=== PATIENT | female | born 1990 | race Caucasian/White ===

== ENCOUNTER → 2017-12-13 18:48 | Outpatient (CLI) | payer OTHER, SELFPAY ==
[2017-12-13 19:06] LABS: Hemoglobin 13.6 g/dl (12.0-15.0); Mean Corpuscular Hgb 31.1 pg (27.0-32.0); Mean Corpuscular Volume 91.5 fL (81-99); Mean Platelet Vol. 10.3 fl (6.2-12.0); Platelet Count 153 K/mm3 (150-450); RBC Distribution Width CV 12.4 % (11.6-14.6); RBC Distribution Width SD 41.2 fl (35.1-43.9); Red Blood Count 4.37 M/mm3 (4.2-5.4); White Blood Count 8.9 K/mm3 (4.4-11.0)
[2017-12-13 19:16] LABS: ALB/GLOB Ratio 0.8 RATIO (0.9-2.4); AST(SGOT) 15 U/L (15-37); Alanine Aminotransfer ALT/SGPT 17 U/L (13-56); Albumin, Serum 2.9 g/dL (3.2-5.0); Alkaline Phosphatase 68 U/L (45-117); Anion Gap 8 (5-15); BUN 5 mg/dL (7-18); BUN/Creat Ratio 8.7 RATIO (10-20); Chloride 106 mmol/L (98-107); Creatinine, Serum 0.57 mg/dL (0.55-1.02); EST Glomerular Filtration Rate 135 mL/min (>60); Est Glom Filt Rate - Afr Amer 164 mL/min (>60); Globulin 3.7 g/dL (2.2-4.2); Glucose 77 mg/dL (74-106); Protein, Total 6.6 g/dL (6.4-8.2); Scan Indicated on CBC? Y/N NO; Sodium Level 140 mmol/L (136-145); Uric Acid 2.6 mg/dL (2.6-6.0)
[2017-12-13 19:17] LABS: Protein, Urine (Random) < 6.0 mg/dL (<11.9)
== END ==
PROVIDERS: Visit Provider Obstetrics & Gynecology
DX: O13.9 Gestational [pregnancy-induced] hypertension without significant proteinuria, unspecified trimester (principal); Z3A.00 Weeks of gestation of pregnancy not specified
CPT/HCPCS: 80053; 82570; 84156; 84550; 85027

== ENCOUNTER 2018-02-16 10:45 | Inpatient (IN) | payer OTHER, SELFPAY ==
[2018-02-16 11:11] VITALS: BMI 28.2
[2018-02-16 11:22] LABS: ROM Internal Control Test YES-OK TO RESULT pt. (Internal QC)
[2018-02-16 11:23] LABS: ROM Patient Test POSITIVE (Negative)
[2018-02-16] MEDS: Lactated Ringers 1,000 ML 50 ML IV (11:32)
[2018-02-16 11:41] LABS: Hemoglobin 15.7 g/dl (12.0-15.0); Mean Corp Hgb Conc 35.7 g/gl (32-36); Mean Corpuscular Hgb 32.2 pg (27.0-32.0); Mean Corpuscular Volume 90.3 fL (81-99); Mean Platelet Vol. 11.2 fl (6.2-12.0); Platelet Count 180 K/mm3 (150-450); RBC Distribution Width CV 12.3 % (11.6-14.6); RBC Distribution Width SD 40.2 fl (35.1-43.9); Red Blood Count 4.87 M/mm3 (4.2-5.4); White Blood Count 12.6 K/mm3 (4.4-11.0)
[2018-02-16 11:43] LABS: Scan Indicated on CBC? Y/N NO
--- NOTE | 2018-02-16 14:22 | PCM.PN.BLA ---
Progress Note LABOR PROGRESS NOTE Called to patient room for delivery. On my arrival FHR 80-85 bpm and patient pushing. Patient turned onto maternal right side with no improvement and O2 administered. SVE 9/90/-1 by my exam. Patient then turned to all fours and ISE placed with no improvement of FHR x 8 minutes thus advised transfer to room for possible section versus delivery. On arrival to OR, FHR 135-140 bpm and moderate variability. I reviewed with patient and findings and my recommendation to continue laboring at this time and status more reassuring. Patient in agreement. Will continue to observe in OR.
[2018-02-16] MEDS: Oxytocin 30 units/NS 500 ml 30 UNITS/500 ML IV.SOLN 334 UNITS IV (17:43)
[2018-02-16] MEDS: Methylergonovine 0.2 MG/ML Ampul IM (17:51)
[2018-02-16] MEDS: Oxytocin 30 units/NS 500 ml 30 UNITS/500 ML IV.SOLN 167 UNITS IV (18:15)
--- NOTE | 2018-02-16 18:28 | PCM.OB.VAG ---
- Problem List (1) 40 weeks gestation of Status: Acute (2) Vacuum extractor delivery, delivered Status: Acute Vaginal Delivery Maternal Presentation: Active Labor Amniotic Membrane Rupture Type: Spontaneous at home Rupture of Membrane time: 0600 02/16/18 Amniotic Fluid Description: Clear Final CHERIE: 02/10/18 Final CHERIE Source: US <20 weeks Gestational age: 40 Weeks and 6 Days [place] doctor who attended delivery (if requested by OB): Regi Duong Date of Procedure: 02/16/18 Pre-Operative Diagnosis: 40 6/7wga, Cat II FHR Post-Operative Diagnosis: 40 6/7wga, Cat II FHR Surgery/ Procedure Performed: Vacuum Assisted Vaginal Delivery Anesthesiologist: Kishor Fox Type of Anesthesia: Epidural Description of Procedure: Patient was fully dilated +2 station on my arrival with the presence of prolonged decelerations. I advised vacuum assistance at this time and reviewed with her and her risks including scalp edema, bruising, scalp laceration, subgaleal hemorrhage as well as maternal perineal and vaginal laceration. Patient was agreeable and desire to proceed. The fetus was in NORA. The Kiwi Was placed at the flexion point and 500 mm suction applied at 1632. The patient continue pushing with good maternal effort and recurrent decelerations for the next 20 minutes. heart rate would recover in between contractions up to 90s-120s beats per minute. It appeared that the decelerations were lessening in severity and given descent to +3 station at this time I removed the suction apparatus. The patient continue to push with excellent effort and the heart rate remained category 1 therapeutic time and then again returned category 2 however moderate variability persisted in between decelerations. When the scalp breech +4 station I again advised vacuum delivery given the recurrence of the decelerations. Vacuum was placed at the flexion point and 500 mmHg applied. There is a single pull for less than a minute with delivery of the head to the suction was released and vacuum Removed. The anterior then posterior shoulders delivered and the was placed on the maternal abdomen and further attended by the nursery personnel. The cord was quickly doubly clamped and cut and the then passed to the waiting photographer assistant. Her gases were obtained. The placenta delivered spontaneously and appeared intact on inspection. The uterus was notably atonic and there was a gush of blood without any hemorrhage. IV Pitocin was administered and I employed vigorous bimanual uterine massage and a dose of IM Methergine was administered. There was significant improvement of the bleeding and uterine tone improved. A first-degree vaginal laceration was repaired using 3-0 Vicryl Rapide. Sponge counts were correct ?2. Needle counts were correct ?2. Presentation: Vertex Placental Delivery Description: Spontaneous Placenta Disposition: [facility] Cord Vessel Description: 3 Vessels Nuchal Cord Compression: Without compression Cord Gases drawn per routine: ABG, VBG Cord Entanglement: None Drain: Oswald to straight drain Estimated Blood Loss: 350 ml A gender: Male (1 minute): 8 (5 minute): 9 Episiotomy Description: None Laceration: Vaginal Extension/lac, 1st degree Medications given after delivery: IV Pitocin, IM Methergin Complications: None
[2018-02-16] MEDS: Ibuprofen 600 MG Tablet PO (19:42)
[2018-02-16] MEDS: 0.9% Saline Lock 10 ML Syringe IV (20:15)
[2018-02-17 00:06] VITALS: BP 120/77; PULSE 75; RESP 16; TEMP 36.6; O2SAT 99
[2018-02-17 03:48] VITALS: BP 103/59; PULSE 61; RESP 16; TEMP 36.6; O2SAT 99
--- NOTE | 2018-02-17 04:15 | NURSING ---
Taking over pt care.
[2018-02-17] MEDS: Ibuprofen 600 MG Tablet PO ×2 (07:37→17:32)
[2018-02-17 08:00] VITALS: BP 127/69; PULSE 65; RESP 14; TEMP 36.1
--- NOTE | 2018-02-17 08:46 | PCM.PN.OB ---
Patient Problems: Active and Suspected Problems (This Medical Record has been edited. Action required.) 40 weeks gestation of (Acute) Vacuum extractor delivery, delivered (Acute) Subjective: No issues overnight. Her bottom is sore. Denies heavy lochia. No complaints. is nursing well. Denies heavy lochia. Objective: AVSS - Physical Exam General: Alert, Oriented x3, Cooperative, No apparent distress HEENT: Atraumatic, Normocephalic Lungs: Normal air movement Cardiovascular: Regular rate, Regular Rhythm, Normal S1, Normal S2 Abdomen: Soft, Non Tender, Non-Distended, - - Fundus firm and nontender Extremities: No edema, No Calf Tenderness Neurological: Neuro grossly intact Psych/Mental Status: Normal Affect, Appropriate, Alert and oriented to time, place, person, mood and affect Vital Signs Temp Pulse Resp BP Pulse Ox 97.8 F 61 16 103/59 L 99 02/17/18 03:48 02/17/18 03:48 02/17/18 03:48 02/17/18 03:48 02/17/18 03:48 Oxygen Delivery Method Room Air Weight: 74.559 kg Body Mass Index (BMI) 28.2 Intake and Output for Last 24 Hours 02/15/18 02/16/18 02/17/18 23:59 23:59 23:59 Intake Total 1150 / 1150 Output Total 800 / 800 700 / 700 Balance 350 / 350 -700 / -700 Laboratory Tests Past 24 Hrs 02/16/18 02/16/18 02/16/18 11:00 11:10 11:10 WBC 12.6 H RBC 4.87 Hgb 15.7 H Hct 44.0 MCV 90.3 MCH 32.2 H MCHC 35.7 RDW 12.3 RDW Differential 40.2 Plt Count 180 MPV 11.2 Specimen Type Sample Site O2 % Cord ABG pH Cord ABG pCO2 Cord ABG pO2 Cord ABG HCO3 Cord ABG Total CO2 Cord ABG Base Excess Cord ABG O2 Sat Respiration Rate O2 Delivery Device Liter Flow Minute Volume Tidal Volume POC PEEP POC Pressure Suppt Pressure High Pressure Low Time High Time Low EPAP IPAP Blood Gas Notified Whom Blood Gas Notified Time Vag Amniotic Fld Detect POSITIVE H Blood Type AB POSITIVE Antibody Screen NEGATIVE 02/16/18 18:06 WBC RBC Hgb Hct MCV MCH MCHC RDW RDW Differential Plt Count MPV Specimen Type Cancelled Sample Site Cancelled O2 % Cancelled Cord ABG pH Cancelled Cord ABG pCO2 Cancelled Cord ABG pO2 Cancelled Cord ABG HCO3 Cancelled Cord ABG Total CO2 Cancelled Cord ABG Base Excess Cancelled Cord ABG O2 Sat Cancelled Respiration Rate Cancelled O2 Delivery Device Cancelled Liter Flow Cancelled Minute Volume Cancelled Tidal Volume Cancelled POC PEEP Cancelled POC Pressure Suppt Cancelled Pressure High Cancelled Pressure Low Cancelled Time High Cancelled Time Low Cancelled EPAP Cancelled IPAP Cancelled Blood Gas Notified Whom Cancelled Blood Gas Notified Time Cancelled Vag Amniotic Fld Detect Blood Type Antibody Screen Medical Necessity - Tobacco Use Smoking Status: Never smoker Assessment/Plan All Active Problems (This Medical Record has been edited. Action required.) 40 weeks gestation of (Acute) Vacuum extractor delivery, delivered (Acute) 27yo PPD#1 s/p VAVD doing well. -AB positive, Rubella immune - -Routine care
[2018-02-17] MEDS: Acetaminophen 500 MG Tablet PO ×2 (10:52→20:27)
[2018-02-17 12:35] VITALS: BP 119/70; PULSE 78; TEMP 36.4; O2SAT 98
[2018-02-17 17:35] VITALS: BP 124/77; PULSE 67; RESP 20; TEMP 36.3; O2SAT 100
[2018-02-17 20:00] VITALS: BP 116/62; PULSE 64; RESP 16; TEMP 36.6
[2018-02-18 03:20] VITALS: BP 129/69; PULSE 85; RESP 16; TEMP 36.1
[2018-02-18] MEDS: Acetaminophen 500 MG Tablet PO (07:33)
[2018-02-18 07:55] VITALS: BP 113/62; PULSE 58; RESP 18; TEMP 36.2
--- NOTE | 2018-02-18 08:40 | PCM.PN.OB ---
Patient Problems: Active and Suspected Problems (This Medical Record has been edited. Action required.) 40 weeks gestation of (Acute) Vacuum extractor delivery, delivered (Acute) Subjective: No complaints. Doing well. Denies heavy lochia or urinary sx. Objective: AVSS - Physical Exam General: Alert, Oriented x3, Cooperative, No apparent distress HEENT: Atraumatic, Normocephalic Lungs: Clear to auscultation, Normal air movement Cardiovascular: Regular rate, Regular Rhythm, Normal S1, Normal S2 Abdomen: Soft, Non Tender, Non-Distended, - - Fundus firm and nontender, lochia scant Extremities: No edema, No Calf Tenderness Neurological: Neuro grossly intact Psych/Mental Status: Normal Affect, Appropriate, Alert and oriented to time, place, person, mood and affect Vital Signs Temp Pulse Resp BP Pulse Ox 97.2 F L 58 L 18 113/62 100 02/18/18 07:55 02/18/18 07:55 02/18/18 07:55 02/18/18 07:55 02/17/18 17:35 Oxygen Delivery Method Room Air Weight: 74.559 kg Body Mass Index (BMI) 28.2 Intake and Output for Last 24 Hours 02/16/18 02/17/18 02/18/18 23:59 23:59 23:59 Intake Total 1150 / 1150 Output Total 800 / 800 700 / 700 Balance 350 / 350 -700 / -700 Medical Necessity - Tobacco Use Smoking Status: Never smoker Assessment/Plan All Active Problems (This Medical Record has been edited. Action required.) 40 weeks gestation of (Acute) Vacuum extractor delivery, delivered (Acute) 27yo PPD#2 s/p VAVD doing well. -AB positive, Rubella immune - -Routine care -d/c home today
--- NOTE | 2018-02-18 09:29 | PCM.DCVAG ---
Discharge Diet: No Restrictions Discharge Activity: Return to Normal Activity May resume sexual activity in: 6 weeks Lifting Restrictions: 20 lb Call your doctor if you observe: Fever of 101 or Higher, Inability to urinate, Inability to have a bowel movement, Using more than one pad per hour, Shortness of breath, Chest pain, Calf discomfort, Uncontrolled pain Cleanse incision/area with: Soap & Water Additional Instructions: If you experience any of the following, contact your healthcare provider. Bleeding that soaks a pad every hour for 2 hours Fever 100.4 or higher Unrelieved incision or abdominal pain Swelling, redness, discharge or bleeding from your incision or episiotomy site Your incision begins to separate Problems urinating (including inability to urinate or burning while urinating). Visual changes Severe headache Flu-like symptoms Pain or redness in one of both of your breasts Pain, warmth, tenderness or swelling in your legs, especially the calf area Frequent nausea and vomiting Symptoms of depression or anxiety If you experience any of the following, call 911 or go to the nearest Emergency Room. Chest pain Problems breathing Seizure activity Partial or complete paralysis of a body part, slurred speech, weakness or drooping of the face, or a sudden inability to walk or hold your balance Allergies/Adverse Reactions: Allergies No Known Allergies Allergy (Verified 11/21/14 07:57) Medications to take at Discharge Ibuprofen 600 mg PO TID PRN #30 tab 02/16/18 The following prescriptions were given: Ibuprofen 600 mg PO TID PRN #30 tab PRN Reason: Pain Please Follow Up With: Unique Selby MD When: 6 weeks Primary Care Physician: Prasanth Tineo MD [Primary Care Provider] - Test Results: Test results from this visit will be discussed in further detail at your follow-up appointment, if applicable.
--- NOTE | 2018-02-18 10:55 | NURSING ---
0930 While rounding, Mom doing a great job with nursing. Mom has her spectra breast pump here and was shown how to use her pump for home use. Many questions answered regarding feeding.
== END 2018-02-18 12:30 | disposition home or self-care (01) | DRG 775 ==
PROVIDERS: Obstetrics & Gynecology; Admitting Provider Obstetrics & Gynecology; Family Provider Family Medicine; PCP Family Medicine; Visit Provider Obstetrics & Gynecology
DX: O76 Abnormality in fetal heart rate and rhythm complicating labor and delivery (principal); O42.02 Full-term premature rupture of membranes, onset of labor within 24 hours of rupture; O70.0 First degree perineal laceration during delivery; Z3A.40 40 weeks gestation of pregnancy; Z37.0 Single live birth
CPT/HCPCS: 59025; 59050; 82803; 84112; 85027; 86850; 86900; 99218; J7120; A4216; G0378

== ENCOUNTER → 2019-02-07 17:54 | Outpatient (CLI) | payer OTHER, SELFPAY | PROVIDERS: Family Provider Family Medicine; PCP Family Medicine; Referring Provider Family Medicine; Visit Provider Family Medicine | DX: R30.0 Dysuria (principal) | CPT/HCPCS: 87086; 87088; 87186 ==

== ENCOUNTER → 2019-10-23 | Outpatient (CLI) | payer BC, SELFPAY ==
[2019-10-23 17:50] LABS: Absolute Lymphocyte Count 1.35 X10^3/uL (0.83-4.51); Absolute Neutrophil Count 8.8 X10^3/uL (2.0-7.7); Basophil# 0.02 X10^3/uL; Basophil% 0.2 % (0-1); Eosinophil# 0.04 X10^3/uL; Eosinophils% 0.4 % (0-5); Hemoglobin 13.4 g/dL (12.0-15.0); Lymphocyte # 1.35 X10^3/ul (4.0); Lymphocyte % 12.5 % (19-41); Mean Corp Hgb Conc 33.5 g/dL (32-36); Mean Corpuscular Hgb 29.6 pg (27.0-32.0); Mean Corpuscular Volume 88.3 fL (81-99); Mean Platelet Vol. 10.5 fl (6.2-12.0); Monocyte# 0.51 X10^3/uL; Monocyte% 4.7 % (0-10); NRBC Flagged by Analyzer 0 % (0-5); Neutrophil # 8.84 X10^3/uL (2.7-7.7); Neutrophil % 81.8 % (47-70); Platelet Count 163 K/mm3 (150-450); RBC Distribution Width CV 11.9 % (11.6-14.6); RBC Distribution Width SD 38.1 fl (35.1-43.9); Red Blood Count 4.53 M/mm3 (4.2-5.4); White Blood Count 10.8 K/mm3 (4.4-11.0)
[2019-10-23 18:08] LABS: Color, Urine Yellow (Yellow); Glucose, Dipstick Normal (Normal); Ketone-Dipstick Negative (Negative); Leukocyte Esterase-Dipstick Negative /ul (Negative); Nitrite-Dipstick Negative (Negative); Occult Blood-Urine Negative /ul (Negative); Protein-Dipstick Negative (Negative); Specific Gravity, Urine 1.005 (1.002-1.030); Urine Bilirubin Dipstick Negative (Negative); Urine Clarity Clear (Clear); Urine Urobilinogen Normal (Normal); Urine pH 6.5 (5.0 - 8.0)
[2019-10-23 18:38] LABS: Amphetamine Urine VISTA NEGATIVE (<1000 ng/mL); Barbiturate Urine VISTA NEGATIVE (< 200 ng/mL); Benzodiazepine Urine VISTA NEGATIVE (< 200 ng/mL); Cocaine Urine VISTA NEGATIVE (< 300 ng/mL); Ecstacy Urine VISTA NEGATIVE (< 500 ng/mL); Methadone Urine VISTA NEGATIVE (< 300 ng/mL); PCP Urine VISTA NEGATIVE (< 25 ng/mL); THC Urine VISTA NEGATIVE (< 50 ng/mL); Vista UDS pH Range 6
[2019-10-23 21:31] LABS: Chlamydia Trachomatis by PCR Negative (Negative); Neisserai gonorrhoeae by PCR Negative (Negative); Probe Check PASS; Sample Adequacy Control PASS; Specimen Processing Control PASS
[2019-10-24 08:28] LABS: HIV - WCH Non-Reactive (Nonreactive); Hepatitis B Surface Antigen Non-Reactive (Nonreactive); Hepatitis C Antibody Non-Reactive (Nonreactive); Rubella IgG 122.7 IU/mL
[2019-10-25 08:08] LABS: Prenatal RPR NONREACTIVE (NONREACTIVE)
== END | disposition home or self-care (01) ==
PROVIDERS: PCP Family Medicine; Referring Provider Obstetrics & Gynecology; Visit Provider Obstetrics & Gynecology
DX: Z34.81 Encounter for supervision of other normal pregnancy, first trimester (principal); Z12.4 Encounter for screening for malignant neoplasm of cervix; Z11.3 Encounter for screening for infections with a predominantly sexual mode of transmission
CPT/HCPCS: 80307; 81002; 84443; 85025; 86703; 86762; 86803; 87340; 87491; 87591

== ENCOUNTER → 2020-02-27 15:23 | Outpatient (CLI) | payer BC, SELFPAY ==
[2020-02-27 17:33] LABS: Hematocrit 38.1 % (37-47); Hemoglobin 13.2 g/dL (12.0-15.0); Mean Corp Hgb Conc 34.6 g/dL (32-36); Mean Corpuscular Volume 92.3 fL (81-99); Mean Platelet Vol. 10.8 fl (6.2-12.0); Platelet Count 166 K/mm3 (150-450); RBC Distribution Width SD 40.3 fl (35.1-43.9); Red Blood Count 4.13 M/mm3 (4.2-5.4); White Blood Count 13.1 K/mm3 (4.4-11.0)
[2020-02-27 17:47] LABS: Glucose Challenge Gest 1H 50g 139 mg/dL (70-140)
== END ==
PROVIDERS: PCP Family Medicine; Visit Provider Obstetrics & Gynecology
DX: Z34.83 Encounter for supervision of other normal pregnancy, third trimester (principal)
CPT/HCPCS: 36415; 82950; 85027

== ENCOUNTER → 2020-04-15 | Outpatient (CLI) | payer BC, SELFPAY | END | disposition home or self-care (01) | LOC: LABSPEC 16:18 | PROVIDERS: PCP Family Medicine; Visit Provider Obstetrics & Gynecology | DX: Z36.85 Encounter for antenatal screening for Streptococcus B (principal) | CPT/HCPCS: 87081 ==

== ENCOUNTER 2020-05-04 10:15 | Outpatient (CLI) | payer BC, SELFPAY ==
[2020-05-04 10:37] VITALS: BMI 25.9
[2020-05-04 11:05] VITALS: BP 114/69; PULSE 72; TEMP 37.3; O2SAT 98
[2020-05-04 11:59] LABS: ROM Internal Control Test YES-OK TO RESULT pt. (Internal QC); ROM Patient Test Negative (Negative)
[2020-05-04 13:01] VITALS: PULSE 80; O2SAT 100
--- NOTE | 2020-05-04 13:21 | OB.TRI.NOTE ---
History of Present Illness Date of Service: 05/04/20 Was patient seen by the physician?: Yes Reason For Visit: RULE OUT LABOR Date of Service: 05/04/20 Final CHERIE: 05/09/20 Final CHERIE Source: US <20 weeks Gestational age: 39 Weeks and 2 Days History of Present Illness: 29-year-old G2, P1 at 39 weeks and 2 days arrives with contractions and leakage of clear fluid. Medications: None Past medical history: None Past surgical history: None Allergies No Known Allergies Allergy (Verified 05/04/20 10:43) Laboratory Studies: Laboratory Tests 05/04/20 Range/Units 11:25 Vag Amniotic Fld Detect Negative (Negative) Review of Systems Constitutional: Denies: Chills, Fever, Weight Change HEENT: Denies: Head Aches, Sinus Congestion, Sinus Drainage Cardiovascular: Denies: Chest Pain, Palpitations Respiratory: Denies: Cough, Shortness of breath at rest, Sputum production Gastrointestinal: Denies: Abdominal Pain, Nausea, Vomiting Genitourinary: Denies: Dysuria Gynecological: Reports: - - Contractions Musculoskeletal: Denies: Joint Pain, Joint Tenderness Skin: Denies: Rash, Wounds Neurological: Denies: Numbness, Tingling, Focal weakness Psychiatric: Denies: Anxiety, Depression, Homicidal Ideations, Suicidal Ideations Physical Exam Vitals: Vital Signs Temp Pulse BP Pulse Ox 99.2 F H 80 114/69 100 05/04/20 11:05 05/04/20 13:01 05/04/20 11:05 05/04/20 13:01 General: Alert, Oriented x3, Cooperative, No apparent distress HEENT: Atraumatic, PERRLA, Normocephalic Cardiovascular: Regular rate, Regular Rhythm, Normal S1, Normal S2, No murmurs Lungs: Clear to auscultation, Normal air movement, No rhonchi, No wheeze, No rales Abdomen: Bowel Sounds Present, Soft, Non Tender, Gravid, - - Bedside ultrasound: CHIVO subjectively within normal limits, heart rate 122 Extremities:: No clubbing, No cyanosis, No edema Neurological: Neuro grossly intact 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 Leakage of fluid, negative for rupture of membranes. Fetus with known PACs evaluated by [facility] echo performed found to be within normal limits but PACs were noted, the heart rate tracing and bedside ultrasound today overall reassuring. Will discharge home, rescheduled for induction of labor for 1116 at 7 AM. Findings were discussed with patient, all questions were answered.
== END 2020-05-04 13:35 | disposition home or self-care (01) ==
LOC: WPOUT 10:28 → WP 10:29
PROVIDERS: PCP Family Medicine; Visit Provider Obstetrics & Gynecology
DX: O47.1 False labor at or after 37 completed weeks of gestation (principal); O36.8330 Maternal care for abnormalities of the fetal heart rate or rhythm, third trimester, not applicable or unspecified; Z3A.39 39 weeks gestation of pregnancy
CPT/HCPCS: 59025; 59050; 76815; 84112; 99218; G0378

== ENCOUNTER 2020-05-05 04:24 | Inpatient (IN) | payer BC, SELFPAY ==
[2020-05-04 10:37] VITALS: BMI 25.9
[2020-05-05] VITALS (46 sets, daily range): BP systolic 98–139; BP diastolic 58–83; PULSE 57–123; RESP 14–16; TEMP 36.5–37.1; O2SAT 91–100; BMI 25.9
[2020-05-05] MEDS: Lactated Ringers 1,000 ML 50 ML IV (04:40)
[2020-05-05 05:10] LABS: Absolute Lymphocyte Count 1.15 X10^3/uL (0.83-4.51); Absolute Neutrophil Count 10.5 X10^3/uL (2.0-7.7); Basophil# 0.01 X10^3/uL; Basophil% 0.1 % (0-1); Eosinophil# 0.01 X10^3/uL; Eosinophils% 0.1 % (0-5); Hematocrit 43.8 % (37-47); Hemoglobin 14.6 g/dL (12.0-15.0); Lymphocyte # 1.15 X10^3/ul (4.0); Lymphocyte % 9.3 % (19-41); Mean Corp Hgb Conc 33.3 g/dL (32-36); Mean Corpuscular Hgb 31.5 pg (27.0-32.0); Mean Corpuscular Volume 94.6 fL (81-99); Mean Platelet Vol. 10.5 fl (6.2-12.0); Monocyte# 0.62 X10^3/uL; NRBC Flagged by Analyzer 0 % (0-5); Neutrophil # 10.53 X10^3/uL (2.7-7.7); Neutrophil % 85.3 % (47-70); Platelet Count 165 K/mm3 (150-450); RBC Distribution Width CV 12.2 % (11.6-14.6); RBC Distribution Width SD 41.9 fl (35.1-43.9); Red Blood Count 4.63 M/mm3 (4.2-5.4); White Blood Count 12.4 K/mm3 (4.4-11.0)
[2020-05-05] MEDS: Lactated Ringers 500 ML 999 ML IV (05:47)
[2020-05-05] MEDS: fentaNYL-bupivacaine (epidural) 100 ML BAG EPIDURAL (06:22)
--- NOTE | 2020-05-05 06:44 | PCM.HPOB.BLA ---
History and Physical Date of Admission: 05/05/20 Complaint: Contractions History of present illness: 29-year-old G2, P1 at 39 weeks and 3 days with CHERIE 05/09/2000 20 x 11-week ultrasound arrives with contractions. Denies headache, visual changes, chest pain, shortness of breath, nausea vomiting, right upper quadrant pain. Patient states good movement. Obstetric history G1: 40-week male 01/2018 G2: Current Past medical history: None Past surgical history: None Medications: vitamin Allergies: No known drug allergies Social: Denies smoking, alcohol or drug use Review of systems: Besides the above pertinent positives a full review of systems was performed and found to be negative Physical exam: Vital Signs Temp Pulse BP Pulse Ox 05/05/20 06:48 96 110/71 05/05/20 06:45 84 131/67 H 05/05/20 06:44 72 100 05/05/20 06:42 98.2 F 05/05/20 06:39 80 100 05/05/20 06:38 76 114/70 05/05/20 06:34 79 121/75 H 100 05/05/20 06:29 91 100 05/05/20 06:28 89 128/75 H 05/05/20 06:24 75 100 05/05/20 06:23 77 120/65 05/05/20 06:19 80 130/60 H 100 05/05/20 06:14 61 100 05/05/20 06:13 81 130/83 H 05/05/20 06:09 79 100 05/05/20 06:08 84 92 05/05/20 06:05 98.4 F 05/05/20 06:04 69 130/76 H 100 05/05/20 04:58 97.9 F 05/05/20 04:57 97.9 F 71 120/75 100 General: Normal-appearing no acute distress HEENT: Normocephalic atraumatic no cervical lymphadenopathy Cardiac: Regular rate and rhythm no murmurs rubs or gallops Respiratory: Clear to auscultation bilaterally no wheezes rales or crackles Abdomen: Soft nontender nondistended positive bowel sounds. Negative rebound tenderness or guarding Pelvic exam: Cervical exam: 5/70/-2 heart rate tracing: Morning 120/moderate variability/positive accelerations/negative decelerations [place]: Every 2 minutes Extremities: No peripheral edema normal peripheral pulses Psych: Normal affect normal demeanor nonpressured speech Mom's Labs & Results 05/05/20 05/05/20 04:40 04:40 WBC 12.4 H RBC 4.63 Hgb 14.6 Hct 43.8 MCV 94.6 MCH 31.5 MCHC 33.3 RDW Std Deviation 41.9 RDW Coeff of Kathy 12.2 Plt Count 165 MPV 10.5 Immature Gran % (Auto) 0.200 Neut % (Auto) 85.3 H Lymph % (Auto) 9.3 L [place] % (Auto) 5.0 Eos % (Auto) 0.1 Baso % (Auto) 0.1 Absolute Neuts (auto) 10.5 H Absolute Lymphs (auto) 1.15 Nucleated RBC % 0 Blood Type AB POSITIVE Antibody Screen NEGATIVE Labs Blood Type: AB RH: POSITIVE RPR/VDRL/Syphilis Nonreactive Rubella status Immune HbSAg Negative Date Done: 10/23/19 Chlamydia Negative Gonorrhea Negative HIV/AIDS Non-Reactive Group B Strep: Negative Assessment and plan: Is a 29-year-old G2, P1 at 39 weeks and 3 days in labor. -Admit labor and delivery -CEFM -GBS unknown will start penicillin prophylaxis - PACs: Status post MFM evaluation of echo which was within normal limits. Pending external monitoring will consider internal FSE if needed -Anesthesia to see
[2020-05-05] MEDS: Oxytocin 30 units/NS 500 ml 30 UNITS/500 ML IV.SOLN 334 UNITS IV (08:45)
--- NOTE | 2020-05-05 08:56 | PCM.OPRPT ---
Vaginal Delivery Date of Procedure: 05/05/20 Pre-Operative Diagnosis: Term Post-Operative Diagnosis: Term Surgery/ Procedure Performed: Spontaneous Vaginal Delivery Type of Anesthesia: Epidural Description of Procedure: Normal spontaneous vaginal delivery of a viable female , vertex NORA. Head and shoulders delivered with ease. Cord was cut and clamped. He was handed off to nursing. Placenta was delivered via cord traction and fundal massage. First-degree laceration was noted and repaired in typical fashion. EBL 300 cc Apgars 9/9
[2020-05-05] MEDS: 0.9% Saline Lock 10 ML Syringe IV (11:55)
[2020-05-05] MEDS: Ibuprofen 600 MG Tablet PO (20:55)
[2020-05-06 03:10] VITALS: BP 112/73; PULSE 61; RESP 16; TEMP 36.5
[2020-05-06] MEDS: Ibuprofen 600 MG Tablet PO (05:33)
--- NOTE | 2020-05-06 08:01 | PCM.PN.OB ---
Subjective: No overnight complaints. Pain well controlled. Minimal lochia - Physical Exam Vitals/I&O's: Vital Signs Temp Pulse Resp BP Pulse Ox 97.7 F L 61 16 112/73 100 05/06/20 03:10 05/06/20 03:10 05/06/20 03:10 05/06/20 03:10 05/05/20 16:00 Oxygen Delivery Method Room Air Weight: 151 lb Body Mass Index (BMI) 25.9 Intake and Output for Last 24 Hours 05/04/20 05/05/20 05/06/20 23:59 23:59 23:59 Intake Total 2804.17 / 2804.17 600 / 600 Output Total 700 / 700 Balance 2104.17 / 2104.17 600 / 600 General: Alert, Oriented x3, Cooperative, No apparent distress HEENT: Atraumatic, PERRLA, Normocephalic Oral: Moist Mucosa Neck: Supple Abdomen: Soft, Non Tender, - - Fundus firm and below umbilicus Extremities: No clubbing, No cyanosis Neurological: Neuro grossly intact Psych/Mental Status: Normal Affect, Appropriate, Alert and oriented to time, place, person, mood and affect Current Medications Acetaminophen (Acetaminophen 500 Mg Tablet) 1,000 mg PO Q8H PRN PRN PRN Reason: Pain Score 1-3 Bisacodyl (Bisacodyl 10 Mg Suppository) 10 mg RECTAL UD PRN PRN Reason: If no BM Dibucaine (Dibucaine 30 Gm Tube) 1 applic TOPICAL TID PRN PRN; Protocol PRN Reason: Discomfort Hydrocortisone (Hydrocortisone 2.5% Crm) 1 applic TOPICAL TID PRN PRN; Protocol PRN Reason: Discomfort Ibuprofen (Ibuprofen 600 Mg Tablet) 600 mg PO Q6H PRN PRN PRN Reason: Pain Score 1-3 Last Admin: 05/06/20 05:33 Dose: 600 mg Documented by: Ondansetron HCl (Ondansetron 4 Mg/2 Ml Vial) 4 mg IV Q4H PRN PRN PRN Reason: Nausea Senna/Docusate Sodium (Senna/Docusate Sodium 1 Tablet) 1 - 2 tablet PO DAILY PRN PRN PRN Reason: Constipation Simethicone (Simethicone 80 Mg Tablet) 80 mg PO PCHS PRN PRN Reason: Indigestion/Stomach pain Sodium Chloride (0.9% Saline Lock 10 Ml Syringe) 5 - 15 ml IV UD PRN PRN Reason: SALINE FLUSH Last Admin: 05/05/20 11:55 Dose: 10 ml Documented by: Medical Necessity - Tobacco Use Smoking Status: Never smoker Assessment/Plan All Active Problems (This Medical Record has been edited. Action required.) 40 weeks gestation of (Acute) Vacuum extractor delivery, delivered (Acute) day 1. Breast-feeding. Okay to discharge home today.
--- NOTE | 2020-05-06 08:03 | DCINST_ITS ---
Discharge Diet: No Restrictions Discharge Activity: Return to Normal Activity, May Drive, May Shower May resume sexual activity in: 2 weeks Weight Bearing Status: Weight bearing as tolerated Call your doctor if your incision/area has: Foul Smelling Discharge Call your doctor if you observe: Fever of 101 or Higher, Shortness of breath, Chest pain Additional Instructions: If you experience any of the following, contact your healthcare provider. * Bleeding that soaks a pad every hour for 2 hours * Fever 100.4 or higher * Unrelieved incision or abdominal pain * Swelling, redness, discharge or bleeding from your incision or episiotomy site * Your incision begins to separate * Problems urinating (including inability to urinate or burning while urinating). * Visual changes * Severe headache * Flu-like symptoms * Pain or redness in one of both of your breasts * Pain, warmth, tenderness or swelling in your legs, especially the calf area * Frequent nausea and vomiting * Symptoms of depression or anxiety If you experience any of the following, call 911 or go to the nearest Emergency Room. * Chest pain * Problems breathing * Seizure activity * Partial or complete paralysis of a body part, slurred speech, weakness or drooping of the face, or a sudden inability to walk or hold your balance Allergies/Adverse Reactions: Allergies No Known Allergies Allergy (Verified 05/04/20 10:43) Medications to take at Discharge Vits [Prenatabs FA] 1 tab PO DAILY 05/04/20 Please Follow Up With: Luis Tineo MD When: 6 weeks Primary Care Physician: Prasanth Tineo MD [Primary Care Provider] - Test Results: Test results from this visit will be discussed in further detail at your follow- up appointment, if applicable.
--- NOTE | 2020-05-06 08:03 | PCM.DCVAG ---
Discharge Diet: No Restrictions Discharge Activity: Return to Normal Activity, May Drive, May Shower May resume sexual activity in: 2 weeks Weight Bearing Status: Weight bearing as tolerated Call your doctor if your incision/area has: Foul Smelling Discharge Call your doctor if you observe: Fever of 101 or Higher, Shortness of breath, Chest pain Additional Instructions: If you experience any of the following, contact your healthcare provider. Bleeding that soaks a pad every hour for 2 hours Fever 100.4 or higher Unrelieved incision or abdominal pain Swelling, redness, discharge or bleeding from your incision or episiotomy site Your incision begins to separate Problems urinating (including inability to urinate or burning while urinating). Visual changes Severe headache Flu-like symptoms Pain or redness in one of both of your breasts Pain, warmth, tenderness or swelling in your legs, especially the calf area Frequent nausea and vomiting Symptoms of depression or anxiety If you experience any of the following, call 911 or go to the nearest Emergency Room. Chest pain Problems breathing Seizure activity Partial or complete paralysis of a body part, slurred speech, weakness or drooping of the face, or a sudden inability to walk or hold your balance Allergies/Adverse Reactions: Allergies No Known Allergies Allergy (Verified 05/04/20 10:43) Medications to take at Discharge Vits [Prenatabs FA] 1 tab PO DAILY 05/04/20 Please Follow Up With: Luis Tineo MD When: 6 weeks Primary Care Physician: Prasanth Tineo MD [Primary Care Provider] - Test Results: Test results from this visit will be discussed in further detail at your follow-up appointment, if applicable.
[2020-05-06] MEDS: Acetaminophen 500 MG Tablet 1000 MG PO (08:45)
[2020-05-06 08:58] VITALS: BP 117/77; PULSE 56; RESP 16; TEMP 36.6
[2020-05-06 14:00] VITALS: BP 118/75; PULSE 64; RESP 16; TEMP 36.5
== END 2020-05-06 15:35 | disposition home or self-care (01) | DRG 807 ==
LOC: OBT 04:25 → WP 04:25
PROVIDERS: Admitting Provider Obstetrics & Gynecology; PCP Family Medicine; Visit Provider Obstetrics & Gynecology
DX: O36.8330 Maternal care for abnormalities of the fetal heart rate or rhythm, third trimester, not applicable or unspecified (principal); Z37.0 Single live birth; Z3A.39 39 weeks gestation of pregnancy; O70.0 First degree perineal laceration during delivery
CPT/HCPCS: 59025; 59050; 85025; 86850; 86900; 86901; 99218; J7120; A4216; G0378

== ENCOUNTER → 2020-12-10 12:55 | Outpatient (CLI) | payer BC, SELFPAY ==
[2020-05-05 04:31] VITALS: BMI 25.9
[2020-12-10 15:26] LABS: Anion Gap 7 (5-15); BUN 9 mg/dL (7-18); BUN/Creat Ratio 11.7 RATIO (10-20); Calcium,Total 8.7 mg/dL (8.5-10.1); Chloride 107 mmol/L (98-107); Cholesterol 176 mg/dL (200); Creatinine, Serum 0.77 mg/dL (0.55-1.02); EST Glomerular Filtration Rate 94 mL/min (>60); Est Glom Filt Rate - Afr Amer 114 mL/min (>60); Glucose 78 mg/dL (74-106); High Density Lipoprotein 88 mg/dL; Potassium 3.7 mmol/L (3.5-5.1); Sodium Level 141 mmol/L (136-145); Triglycerides 37 mg/dL; Very Low Density Lipoprotein 7 mg/dL (5-40)
[2020-12-13 03:06] LABS: QNTFERON TB Mitogen Value > 10.00 IU/mL (.); QNTFERON TB Nil Value 0 IU/mL (.); QNTFERON TB1+ Ag Value 0 IU/mL (.); QNTFERON TB2+ Ag Value 0 IU/mL (.)
[2020-12-13 10:07] LABS: QNTIFERON TB Positive Criteria Negative (Negative)
== END ==
PROVIDERS: PCP Family Medicine; Referring Provider Nurse Practitioner Family; Visit Provider Nurse Practitioner Family
DX: Z00.00 Encounter for general adult medical examination without abnormal findings (principal); Z13.220 Encounter for screening for lipoid disorders
CPT/HCPCS: 36415; 80048; 80061; 86480

== ENCOUNTER → 2021-01-20 15:48 | Outpatient (CLI) | payer BC, SELFPAY ==
[2020-05-05 04:31] VITALS: BMI 25.9
[2021-01-20 17:36] LABS: Hematocrit 41.2 % (37-47); Hemoglobin 13.8 g/dL (12.0-15.0); Mean Corp Hgb Conc 33.5 g/dL (32-36); Mean Corpuscular Hgb 29.9 pg (27.0-32.0); Mean Corpuscular Volume 89.2 fL (81-99); Platelet Count 160 K/mm3 (150-450); RBC Distribution Width CV 11.8 % (11.6-14.6); RBC Distribution Width SD 37.5 fl (35.1-43.9); Red Blood Count 4.62 M/mm3 (4.2-5.4); White Blood Count 7.1 K/mm3 (4.4-11.0)
[2021-01-20 18:50] LABS: Ferritin 19 ng/mL (8-252); Iron 65 ug/dL (50-170); Iron Binding Capacity,Total 409 ug/dL (250-450); T4 Free Direct 0.94 ng/dL (0.76-1.46); Thyroid Stim Hormone (TSH) 2.26 uIU/mL (0.358-3.74)
== END ==
PROVIDERS: PCP Family Medicine; Visit Provider Obstetrics & Gynecology
DX: N92.1 Excessive and frequent menstruation with irregular cycle (principal); N77.1 Vaginitis, vulvitis and vulvovaginitis in diseases classified elsewhere
CPT/HCPCS: 36415; 82728; 83540; 83550; 84439; 84443; 85027

== ENCOUNTER → 2021-02-26 13:06 | Outpatient (CLI) | payer BC, SELFPAY ==
[2021-02-26 15:06] LABS: Progesterone Level 10.01 ng/mL (See Comment)
== END ==
PROVIDERS: PCP Family Medicine; Referring Provider Obstetrics & Gynecology; Visit Provider Obstetrics & Gynecology
DX: N92.6 Irregular menstruation, unspecified (principal)
CPT/HCPCS: 36415; 84144

== ENCOUNTER → 2021-03-10 06:05 | Outpatient (CLI) | payer BC, SELFPAY ==
[2021-03-10 08:16] LABS: Estradiol 40.3 pg/mL; Follicle Stimulating Hormone 8.9 mIU/mL; Free T3 3.5 pg/mL (2.18-3.98); Prolactin 6.5 ng/mL; T4 Free Direct 0.97 ng/dL (0.76-1.46); Thyroid Stim Hormone (TSH) 4.05 uIU/mL (0.358-3.74)
[2021-03-10 08:36] LABS: Progesterone Level 0.54 ng/mL (See Comment)
[2021-03-11 08:48] LABS: Sex Hormone-binding Globulin 58.5 nmol/L (24.6-122.0)
[2021-03-13 22:07] LABS: 17-Hydroxyprogesterone 76 ng/dL (.)
== END ==
PROVIDERS: PCP Family Medicine; Referring Provider Obstetrics & Gynecology; Visit Provider Obstetrics & Gynecology
DX: N92.1 Excessive and frequent menstruation with irregular cycle (principal)
CPT/HCPCS: 36415; 82533; 82627; 82670; 83001; 83498; 84144; 84146; 84270; 84403; 84439; 84443; 84481; 82626

== ENCOUNTER → 2021-03-17 15:06 | Outpatient (CLI) | payer BC, SELFPAY ==
[2021-03-17 18:21] LABS: T3 Total - Triiodothyronine 1.04 ng/mL (0.6-1.81)
[2021-03-26 22:32] LABS: Anti-Thyroglobulin AB 2.8 IU/mL (0.0-0.9); Thyroglobulin RIA 12 ng/mL (.); Thyroid Peroxidase AB < 8 IU/mL (0-34)
== END ==
PROVIDERS: PCP Family Medicine; Visit Provider Obstetrics & Gynecology
DX: E03.9 Hypothyroidism, unspecified (principal)
CPT/HCPCS: 36415; 84432; 84480; 86376; 86800

== ENCOUNTER → 2021-05-12 13:46 | Outpatient (CLI) | payer BC, SELFPAY ==
[2021-05-12 14:54] LABS: T3 Total - Triiodothyronine 0.91 ng/mL (0.6-1.81)
[2021-05-12 15:00] LABS: Free T3 2.8 pg/mL (2.18-3.98); T4 Free Direct 1.04 ng/dL (0.76-1.46); Thyroid Stim Hormone (TSH) 1.38 uIU/mL (0.358-3.74)
== END ==
PROVIDERS: PCP Family Medicine; Visit Provider Obstetrics & Gynecology
DX: E03.8 Other specified hypothyroidism (principal)
CPT/HCPCS: 36415; 84439; 84443; 84480; 84481

== ENCOUNTER → 2021-11-26 | Outpatient (CLI) | payer BC, SELFPAY ==
--- NOTE | 2021-11-26 | EMB_PTH ---
PATIENT: KEN GILL [facility] U#:[id number] AGE/SX: 31/F ROOM: RE11/26/[address]: Dr. Unique Corral MD : [id number] BED: DIS: 11/26/2021 SPEC #: [id number] RECD: 11/26/21 14:48 STATUS: TIMOTHY REQ #: [id number] ADEOLA: 11/26/21 00:[address]: Unique Chavez DEPT: SURGICAL PATHOLOGY RECD BY: Felton Monreal ENTERED: 11/27/21 08:14 SP TYPE: ENDOM BX/C GE[place] DR: Dr. Prasanth Alanis MD Tissues: Endometrium, NOS Procedures: Surgery Specimen Level IV HEADER OPERATION: Endometrial biopsy PRE-OP DIAGNOSIS: Menorrhagia TISSUE SUBMITTED: Endometrial biopsy MICROSCOPIC DIAGNOSIS Endometrial biopsy: Proliferative endometrium. SJ:nafisa 11/30/2021 MICROSCOPIC DESCRIPTION Slides are reviewed. GROSS DESCRIPTION Received in fixative is one container labeled with the patient's name and designated endometrial biopsy. The specimen consists of multiple irregular fragments of pink soft tissue that in aggregate measure 2.5 x 2 x 0.1 cm. The specimen is totally submitted in one cassette. / SJ:nafisa 11/27/2021 TC:5 CPT: 42700
== END | disposition home or self-care (01) ==
PROVIDERS: PCP Family Medicine; Visit Provider Obstetrics & Gynecology
DX: N92.0 Excessive and frequent menstruation with regular cycle (principal)
CPT/HCPCS: 88305

== ENCOUNTER 2021-12-24 10:46 | Day surgery (SDC) | payer BC, SELFPAY ==
[2021-12-22 17:59] LABS: Hematocrit 37.4 % (37-47); Hemoglobin 12.1 g/dL (12.0-15.0); Mean Corp Hgb Conc 32.4 g/dL (32-36); Mean Corpuscular Hgb 29.2 pg (27.0-32.0); Mean Corpuscular Volume 90.3 fL (81-99); Mean Platelet Vol. 10.9 fl (6.2-12.0); Platelet Count 165 K/mm3 (150-450); RBC Distribution Width CV 11.8 % (11.6-14.6); RBC Distribution Width SD 38.8 fl (35.1-43.9); Red Blood Count 4.14 M/mm3 (4.2-5.4); White Blood Count 5.1 K/mm3 (4.4-11.0)
[2021-12-22 18:03] LABS: Partial Thromboplast Time 27.8 Seconds (24.1-36.2)
[2021-12-24] VITALS (8 sets, daily range): BP systolic 92–136; BP diastolic 46–72; PULSE 16–75; RESP 16–18; TEMP 36.4–36.9; O2SAT 100; BMI 23.3
--- NOTE | 2021-12-24 10:34 | HP.PCM.OB_ITS ---
History and Physical Date of Admission: 12/24/21 Surgical History and Physical Date: 12/22/2021 Name: KEN TINEO Age: 31 Date of : 1990 Ken Tineo, a 31 year old female 2 0 0 0 2, presents for Hysteroscopy, dilation and curettage, Jana endometrial ablation, Pargard IUd insertion on December 24, 2021 for heavy, prolonged menstrual bleeding and control. [facility] MEDICATIONS HISTORY: Current medications prescribed by our practice are: 1. Lexapro 20 mg tablet, 1 tab po qam 2. Prozac 10 mg capsule, 1 tab po daily 3. Synthroid 50 mcg tablet, One pill by mouth once a day 4. tranexamic acid 650 mg tablet, 2 tabs po tid with menses up to 5 days ALLERGIES: NKDA Infections - Bronchitis, Chicken pox and HX. OF UTI'S Illnesses - childhood allergy/asthma Occ inhaler use prn. Accidents - no injuries of consequence Hospitalizations - Childbirth Review of Systems: GENERAL - Denies fever, or chills SKIN - Denies skin changes EYES - wears eye glasses and wears contact lenses EARS - Denies difficulty hearing NOSE - Denies nasal congestion or bleeding MOUTH - Denies sore throat or difficulty swallowing NECK - Denies pain or swelling RESPIRATORY - Denies shortness of breath or wheezing CARDIOVASCULAR - Denies palpitations or chest pain GASTROINTESTINAL - Denies nausea, vomiting, diarrhea, constipation GENITOURINARY - improved irregular periods MUSCULOSKELETAL - Denies joint or muscle pain NEUROLOGICAL - Denies localized numbness or weakness PSYCHIATRIC - increased anxiety/depression ENDOCRINE - Denies heat or cold intolerance, weight loss or gain HEMATO-IMMUNOLOGIC - Denies excesive bleeding with cuts SOCIAL HISTORY: Alcohol Use - denies drinking Smoking - Never Diet - balanced Diet, 1-2 cups coffee day and water intake tries for 3 liters daily Lifestyle - Exercise - active Seat Belt Use - always Employer - [employer] Job Description - [employer] Illicit Drug Use - denies use of street drugs Sexual Activity - Residence - lives with Place of - [place], [place] Hours Worked - 24 Spouse-Sig Other Name - Abdoul Tineo Spouse-Sig Other Occupation - OT Spouse-Sig Other Phone No - [phone] Children Name(s) - Vy Duckworth (20) Control - condoms FAMILY HISTORY: Maternal Grandmother: DM II. Maternal Grandfather: Hypertension. MENSTRUAL HISTORY: LMP Known?- DefiniteAmount/Duration - 6-7 days, Regularity - Irregular, Frequency - 18-20 days, LMP - 12/15/21, Age Onset Menarche - 15 PAST PREGNANCIES: Total Pregnancies - 2; Full Term Pregnancies - 2; Premature - 0; Abortions, Induced - 0; Abortions, Spontaneous - 0; Ectopics - 0; Multiple Births - 0; Living Children - 2 SURGICAL HISTORY: 1. bilat plantar wart removal 2007 ; - 2. T and A, 05/31 ; - PHYSICAL EXAM BP- 130/82 Sitting, Right arm, regular cuff Temp- 98.3 Taken Orally Weight- 135.22955 lbs Height- 64 inch BMI:[id number] CONSTITUTIONAL - NAD, well nourished, and well developed SKIN - No rash, lesions, or ulcers HEENT - Normocephalic, PERRLA, EOMI LUNGS - CTA x2 without wheezes, crackles or rales CARDIAC - Regular rate and rhythm without rubs, murmurs, or gallops NEUROLOGICAL - normal gait, normal balance, normal motor PSYCHIATRIC - A and O to time, place, person, mood and affect ASSESSMENT/PLAN: 1. Excessive And Frequent Menstruation With Regular Cycle EMB and recent PAP pathology benign Plan for hysteroscopy, dilation and curettage, Jana endometrial ablation Procedural r/b/i reviewed. Alternatives discussed at length Consents signed and reviewed 2. Encounter For General Counseling And Advice On Contraception Discussed PPB further, pt declines salpingectomy - considering vasectomy Interested in IUD - reviewed Paragard vs. Liletta including risks, benefits, bleeding profile, side effects Pt desires Paragard IUD, aware that bleeding may not be as reduced as occurs with ablation + Liletta Assessment & Plan Assessment/Plan (1) Encounter for insertion of intrauterine contraceptive device: (2) Excessive and frequent menstruation with regular cycle:
[2021-12-24] MEDS: Lactated Ringers 1,000 ML 125 ML IV (11:15)
[2021-12-24 11:26] LABS: Internal QC Validated? YES +Cl - CLEAR BKGD; Pregnancy, Urine Negative Negative
[2021-12-24] MEDS: Lidocaine 1% (20 ml mdv) 20 ML Vial (12:37)
[2021-12-24] MEDS: COPPER IUD 1 EACH INTRA-UTER (12:52)
--- NOTE | 2021-12-24 13:11 | PCM.OPRPT ---
Problems Associated Problem List Diagnoses (1) Excessive and frequent menstruation with regular cycle: (2) Encounter for insertion of intrauterine contraceptive device: Report of Operation Date of Procedure: 12/24/21 Pre-Operative Diagnosis: 1. Menorrhagia 2. Contraception desired Post-Operative Diagnosis: 1. Menorrhagia 2. Contraception desired Surgery/Procedure Performed:: 1. Hysteroscopy 2. Jana endometrial ablation 3. Paragard IUD placement Surgeon: Unique Chavez Type of Anesthesia: Local and MAC Anesthesiologist: Kishor Fox Estimated Blood Loss (mL): 50 Description of Procedure: Indications: 31-year-old 2 para 2 presents for scheduled hysteroscopy, D&C ablation and ParaGard IUD placement. She had a history of menorrhagia refractory to medical management. Office endometrial biopsy was benign. She was counseled regarding risks, benefits and alternatives and desired to proceed. Procedure: The patient was brought to the operating room and sinus performed. She is placed in the dorsal supine position and induced under MAC. She was repositioned to dorsolithotomy and examination under anesthesia was performed. The perineum was prepped and draped in sterile fashion. The patient was placed into high lithotomy and bivalve speculum placed vaginally. The cervix was grasped using a single-tooth tenaculum. The cervix sounded to 9 cm. A paracervical block was placed for total of 20 cc of 1% lidocaine without epinephrine. The cervix was subsequently dilated and hysteroscopy performed with tubal ostia visualized and no evidence of polyp or fibroids.. The hysteroscope was removed and cervical length measured to 4 cm. The Jana ablation system was introduced into the uterine cavity and cycle performed. Jana was removed. A ParaGard IUD was placed in the uterus and hysteroscopy performed with uterine integrity maintained. The procedure was complete. The hysteroscope was removed and tenaculum removed from the cervix. The tenaculum site were hemostatic following several minutes of compression and the speculum was removed from the vagina. Sponge counts were correct x2. The patient was repositioned into the dorsal supine, awakened and transferred to recovery room without complication. Complications None Admit VTE Documentation VTE Present on Admission: No VTE Mechan Device Prophylaxis: SCD's VTE Pharm Prophylaxis ordered?: No
--- NOTE | 2021-12-24 13:55 | DCINST_ITS ---
Discharge Instructions Diet Discharge Diet: No restrictions Activity Discharge Activity: Return to Normal Activity May resume sexual activity in: - (2-4 weeks) Dressing / Incision Call your doctor if you observe: Fever of 101 or Higher, Using more than 1 pad per hour, Shortness of breath, Chest pain, Calf discomfort and Uncontrolled pain Follow Up Care Please Follow Up With: Unique Corral MD When: 1-2 weeks Test Results: Test results from this visit will be discussed in further detail at your follow- up appointment, if applicable. Discharge Plan Admission Primary Reason for Your Visit: Hysteroscopy, endometrial ablation, Paragard IUD placement Attending Provider: Unique Chavez Primary Care Provider: Prasanth Alanis Instructions Patient Instructions: Hysteroscopy Discharge Orders/Prescriptions Prescriptions: New oxycodone 5 mg capsule 5 mg PO Q8H PRN (Reason: pain) 1 Days Qty: 3 0RF ibuprofen 600 mg tablet 600 mg PO TID PRN (Reason: pain) Qty: 30 0RF Continued levothyroxine [Synthroid] 50 mcg Tablet 50 mcg PO DAILY fluoxetine [Prozac] 10 mg Capsule 10 mg PO DAILY multivitamin Capsule 1 cap PO DAILY Referrals / Follow Up: Prasanth Alanis MD [Primary Care Provider] - Disposition Disposition (needs filled in before D/C Order can be placed): Home, Self Care
[2021-12-24] MEDS: Ketorolac 30 MG/ML Syringe IV (14:04)
[2021-12-24] MEDS: oxyCODONE 5 MG Tablet PO (14:04)
== END 2021-12-24 14:56 | disposition home or self-care (01) ==
LOC: SDC 10:47 → AC 10:48
PROVIDERS: Anesthesiology; PCP Family Medicine; Visit Provider Obstetrics & Gynecology
PROC: 0U5B8ZZ Destruction of Endometrium, Via Natural or Artificial Opening Endoscopic (ICD-10-PCS; CPT 58558; principal; 2021-12-24 12:20)
DX: N92.0 Excessive and frequent menstruation with regular cycle (principal); Z30.430 Encounter for insertion of intrauterine contraceptive device; F41.9 Anxiety disorder, unspecified; F32.A Depression, unspecified; E07.9 Disorder of thyroid, unspecified; Z79.899 Other long term (current) drug therapy
CPT/HCPCS: 58563; 58300; 36415; 81025; 85027; 85610; 85730; 86850; 86900; 86901; J7120; J2405

== ENCOUNTER → 2022-07-08 | Outpatient (CLI) | payer BC, SELFPAY ==
[2022-07-13 22:08] LABS: HPV APTIMA, High Risk Negative (Negative)
== END | disposition home or self-care (01) ==
LOC: LABSPEC 15:23
PROVIDERS: PCP Family Medicine; Visit Provider Obstetrics & Gynecology
DX: Z12.4 Encounter for screening for malignant neoplasm of cervix (principal)
CPT/HCPCS: 87624; 88175; G0145

== ENCOUNTER → 2023-07-21 | Outpatient (CLI) | payer BC, SELFPAY ==
--- OUTSIDE RECORDS SUMMARY | 2023-07-21 12:10 | XMS RPT_ITS | CCD ---
Author Name Unknown Address [address] [place] [address] Organization [facility] Results Test Name Value Interpretation Reference Range Facil ity Summary Purpose Family History No Family History Records Found Advance Directives No Advanced Directives Records Found Additional Source Comments INFORMATION SOURCE (unrecogn ized section and content) FOR RECORDS PERTAINING TO PATIENTS WHO ARE OR HAVE BEEN ENROLLED IN A CHEMICAL DEPENDENCY/SUBSTANCEABUSE PROGRAM, SOME INFORMATION MAY BE OMITTED. This clinical summary was aggregated from multiple sources. Caution should be exercised in using it in the provision of clinical care. This summary normalizes information from multiple sources, and as a consequence, information in this document may materially change the coding, format and clinical context of patient data. In addition, data may be omitted in some cases. CLINICAL DECISIONS SHOULD BE BASED ON THE PRIMARY CLINICAL RECORDS. [facility] [employer]. provides no warranty or guarantee of the accuracy or completeness of information in this document.
[2023-07-21 12:14] LABS: Absolute Lymphocyte Count 1.41 X10^3/uL (0.83-4.51); Absolute Neutrophil Count 3.9 X10^3/uL (2.0-7.7); Basophil# 0.02 X10^3/uL; Basophil% 0.3 % (0-1); Eosinophil# 0.15 X10^3/uL; Eosinophils% 2.5 % (0-5); Hematocrit 42.1 % (37-47); Hemoglobin 13.6 g/dL (12.0-15.0); Lymphocyte # 1.41 X10^3/ul (0.83-4.51); Lymphocyte % 23.6 % (19-41); Mean Corp Hgb Conc 32.3 g/dL (32-36); Mean Corpuscular Hgb 28.8 pg (27.0-32.0); Mean Platelet Vol. 10.9 fl (6.2-12.0); Monocyte# 0.44 X10^3/uL; Monocyte% 7.4 % (0-10); NRBC Flagged by Analyzer 0 % (0-5); Neutrophil # 3.94 X10^3/uL (2.7-7.7); Platelet Count 170 K/mm3 (150-450); RBC Distribution Width CV 11.9 % (11.6-14.6); RBC Distribution Width SD 38.6 fl (35.1-43.9); Red Blood Count 4.73 M/mm3 (4.2-5.4)
[2023-07-21 12:27] LABS: ALB/GLOB Ratio 1.1 RATIO (0.9-2.4); AST(SGOT) 21 U/L (15-37); Alanine Aminotransfer ALT/SGPT 55 U/L (13-56); Albumin, Serum 4.1 g/dL (3.2-5.0); Alkaline Phosphatase 52 U/L (45-117); Amylase 25 U/L (25-115); Anion Gap 5 (5-15); BUN 10 mg/dL (7-18); Calcium,Total 9.4 mg/dL (8.5-10.1); Chloride 105 mmol/L (98-107); Creatinine, Serum 0.83 mg/dL (0.55-1.02); EST Glomerular Filtration Rate 84 mL/min (>60); Est Glom Filt Rate - Afr Amer 102 mL/min (>60); Globulin 3.7 g/dL (2.2-4.2); Glucose 92 mg/dL (74-106); Lipase 44 U/L (13-75); Potassium 4.2 mmol/L (3.5-5.1); Protein, Total 7.8 g/dL (6.4-8.2); Sodium Level 134 mmol/L (136-145)
== END | disposition home or self-care (01) ==
LOC: MTLAB 09:34
PROVIDERS: PCP Nurse Practitioner Family; Referring Provider Nurse Practitioner Family; Visit Provider Nurse Practitioner Family
DX: R10.11 Right upper quadrant pain (principal)
CPT/HCPCS: 36415; 80053; 82150; 83690; 85025

== ENCOUNTER → 2023-07-28 | Outpatient (CLI) | payer BC, SELFPAY ==
--- NOTE | 2023-07-28 07:12 | US_ITS ---
STUDY: ABDOMINAL ULTRASOUND - RIGHT UPPER QUADRANT REASON FOR VISIT: Female, 32 years old RUQ pain TECHNIQUE: Ultrasound evaluation of the right upper quadrant was performed with real-time and static ho-scale imaging. TECHNICAL QUALITY: Adequate. COMPARISON: None. FINDINGS: Liver: The liver measures 15.1 cm. There is normal echogenicity of the liver. The bile ducts are within normal limits. There is hepatic color flow. The direction of portal flow is hepatopetal. There is no demonstrated mass lesion. Gallbladder: Normal distended gallbladder. The gallbladder wall measures 2.0 mm. There is a negative sonographic Rizo''s sign. There is no pericholecystic fluid. There are no gallstones. Common Bile Duct (C.B.D.): The common bile duct measures 3.0 mm. Pancreas: Normal size of the head, body and tail of the pancreas. There is normal echogenicity of the pancreas. There is no demonstrated pancreatic mass or cyst. Right Kidney: Normal size of the right kidney. The right kidney measures 10.3 cm x 4.8 cm x 4 cm. Normal renal cortex. The right cortex measures 1.4 cm. There is no demonstrated renal mass or cyst. There is no right hydronephrosis. US/Abdomen Limited IMPRESSION: Normal right upper quadrant ultrasound examination. Electronically Signed: Reji Jeff MD at 14:56 EST ,
--- OUTSIDE RECORDS SUMMARY | 2023-07-28 07:14 | XMS RPT_ITS | CCD ---
Author Name Unknown Address [address] [place] [address] Organization [facility] Results Test Name Value Interpretation [...] BE BASED ON THE PRIMARY CLINICAL RECORDS. [facility] [employer] provides no warranty or guarantee of the accuracy or completeness of information in this document.
== END | disposition home or self-care (01) ==
LOC: US 07:11
PROVIDERS: PCP Nurse Practitioner Family; Referring Provider Nurse Practitioner Family; Visit Provider Nurse Practitioner Family
DX: R10.11 Right upper quadrant pain (principal)
CPT/HCPCS: 76705

== ENCOUNTER → 2024-01-10 | Outpatient (CLI) | payer BC, SELFPAY ==
[2024-01-10 15:24] LABS: Vitamin D,25 Hydroxy 57.8 ng/mL
[2024-01-10 15:50] LABS: Free T3 2.6 pg/mL (2.18-3.98); T4 Free Direct 0.81 ng/dL (0.76-1.46); Thyroid Stim Hormone (TSH) 1.94 uIU/mL (0.358-3.74)
== END | disposition home or self-care (01) ==
LOC: MTLAB 13:39
PROVIDERS: PCP Family Medicine; Referring Provider Family Medicine; Visit Provider Family Medicine
DX: L65.9 Nonscarring hair loss, unspecified (principal)
CPT/HCPCS: 36415; 82306; 84439; 84443; 84481